=== PATIENT | male | born 1970 | race Caucasian/White ===

== ENCOUNTER 2019-01-17 13:54 | Emergency (ER) | payer OTHER, SELFPAY ==
[2019-01-17 13:54] VITALS: BP 149/89; PULSE 97; RESP 16; TEMP 36.9; O2SAT 98
--- NOTE | 2019-01-17 16:05 | ED.SKABFB ---
HPI - Skin/Abscess/Foreign Bdy <JUN Iglesias - Last Filed: 01/17/19 22:19> General Chief complaint: Skin/Abscess/Foreign Body Stated complaint: Laceration under rt eye Time Seen by Provider: 01/17/19 15:30 Source: patient Mode of arrival: ambulatory Limitations: no limitations History of Present Illness HPI narrative: 48-year-old healthy male presents emergency department today complaining of a laceration to the right side of his cheek. He states that he was grinding metal and a piece of metal hit him in the cheek, he bandage the area and went to bed last night but noticed there is still open this morning. He states that he cleaned the wound thoroughly and used some hydrogen peroxide. Last tetanus was a few years ago, denies any foreign objects in his eyes as he was wearing safety glasses. Denies fevers, chills, nausea, change of vision, headache, loss of consciousness, chest pain, or shortness of breath. MD complaint: laceration Onset (ago): hour(s) Tetanus up to date: yes Location: generalized Severity: mild Severity scale (1-10): 2 Quality: aching Pain Consistency: constant Relieving factors: none Exacerbating factors: none Related Data Allergies Allergy/AdvReac Type Severity Reaction Status Date / Time No Known Drug Allergies Allergy Verified 01/17/19 13:58 Review of Systems <JUN Iglesias - Last Filed: 01/17/19 22:19> Review of Systems REVIEW OF SYSTEMS: GENERAL: Denies fever or chills. HENT: Denies head trauma. EYE: Denies double vision or vision loss. CARDIOVASCULAR: Denies syncope. MUSCULOSKELETAL: Denies weakness, or deformities. INTEGUMENTARY: Complains of laceration, see HPI. NEURO: Denies numbness or tingling. PFSH <JUN Iglesias - Last Filed: 01/17/19 22:19> Medical History No significant medical problems (Acute) Social History Smoking Status: Never smoker Social History Smoking Status: Never smoker Exam <JUN Iglesias - Last Filed: 01/17/19 22:19> Initial Vital Signs Initial Vital Signs: Vital Signs Temperature 98.5 F 01/17/19 13:54 Pulse Rate 97 H 01/17/19 13:54 Respiratory Rate 16 01/17/19 13:54 Blood Pressure 149/89 H 01/17/19 13:54 Pulse Oximetry 98 01/17/19 13:54 PHYSICAL EXAMINATION: GENERAL: Well groomed, alert, and cooperative. Answers questions promptly and appropriately. Vital signs noted. HENT: [Normocephalic, atraumatic.] RESPIRATORY: Normal respiratory rate, trachea midline, airway patent. No stridor, nasal flaring or accessory muscle use. MUSCULOSKELETAL: Normal gait and coordination. Equal tone and mass bilaterally. EXTREMITIES: CMS intact. Moves all extremities. SKIN: Warm, dry, soft, appropriate color for ethnicity. 2.5mm laceration to left upper cheek. Wound bed pink. Bleeding controlled. No surrounding erythema. Wound was extensively irrigated and repaired with glue. NEURO: Alert and Oriented X 3. Good coordination. PSYCH: Appropriate affect and mood. <Jeanette More DO - Last Filed: 01/20/19 18:43> Initial Vital Signs Initial Vital Signs: Vital Signs Temperature 98.5 F 01/17/19 13:54 Pulse Rate 97 H 01/17/19 13:54 Respiratory Rate 16 01/17/19 13:54 Blood Pressure 149/89 H 01/17/19 13:54 Pulse Oximetry 98 01/17/19 13:54 Course <JUN Iglesias - Last Filed: 01/17/19 22:19> Course Narrative: After wound was extensively irrigated with normal saline, glue was applied to the area. Consultations Consultation #1: Patient staffed with Dr. More. Vital Signs - 8 hr 01/17/19 16:18 Pulse Rate 86 Respiratory Rate 15 Blood Pressure 145/96 H Pulse Oximetry 100 <Jeanette More DO - Last Filed: 01/20/19 18:43> Vital Signs - 8 hr 01/17/19 16:18 Pulse Rate 86 Respiratory Rate 15 Blood Pressure 145/96 H Pulse Oximetry 100 MDM - Skin/Abscess/Foreign Bdy <JUN Iglesias - Last Filed: 01/17/19 22:19> Medical Records Attestation: I reviewed the patient's medical records. Lab Data Attestation: I reviewed the patient's lab results. MDM Narrative Medical decision making narrative: Simple fairly superficial laceration was repaired glue as laceration has been open for less than 24 hours, thus the face is more vascular and has a decreased risk of infection. Wound was extensively irrigated with soap and sterile saline. Instructions were given for follow-up, return precautions for infection were given. Discharge Plan Departure Patient Disposition: Home Clinical Impression: Laceration of face Qualifiers: Encounter type: initial encounter Qualified Code(s): S01.81XA - Laceration without foreign body of other part of head, initial encounter Discharge Date/Time: 01/17/19 16:19 Interventions: ED Discharge Assessment Last Done: 01/17/19 16:18 Instructions: DI for Laceration Repair Activity Restrictions/Additional Instructions: Thank you for entrusting me with your care today. As discussed, and placed glue on your laceration. This will fall off on its own, do not peel any of this off. Keep the area dry for the next 24 hours. Monitor for signs of infection such as purulent discharge, increased redness, increased pain, or increased swelling. If any of these symptoms occur, please see a doctor immediately. Follow up with her primary care provider as needed. Referrals: James Bolden MD [Primary Care Provider] - <Jeanette More DO - Last Filed: 01/20/19 18:43> Cosign ED Attending Costundeature Attestation: I was immediately available in the department for consultation. This documentation has been reviewed and I agree with assessment and plan. Supervised by Jeanette More DO
[2019-01-17 16:18] VITALS: BP 145/96; PULSE 86; RESP 15; O2SAT 100
== END 2019-01-17 16:19 | disposition home or self-care (01) ==
PROVIDERS: Emergency Provider Nurse Practitioner; PCP Family Medicine
DX: S01.81XA Laceration without foreign body of other part of head, initial encounter (principal); W26.8XXA Contact with other sharp object(s), not elsewhere classified, initial encounter
CPT/HCPCS: 99282